=== PATIENT | male | born 1985 | race Caucasian/White ===

== ENCOUNTER 2016-12-25 12:50 | Emergency (ER) ==
[2016-12-25 13:04] VITALS: BP 148/89; TEMP 98.6; BMI 43.0
[2016-12-25] MEDS ORDERED: ZOFRAN 4 MG/2 ML IM STA (13:34)
[2016-12-25] MEDS ORDERED: MORPHINE 4 MG/ML SYRINGE IM STA (13:34)
--- NOTE | 2016-12-25 13:37 | ED.PDOC ---
General ED Provider: Dr. NANCY FLORES Chief Complaint: Neck Pain Non-Injury Stated Complaint: NECK PAIN Time Seen by Physician: 13:00 Information Source: Patient Primary Care Provider: [facility] Documentation Reviewed and Agree: Yes Musculoskeletal Complaint Exam - Neck Pain Complaint/Exam Mechanism of Injury: Reports: No known trauma Onset/Duration: 2 DAYS Symptoms Are: Still present Timing: Constant Episodes Lasting: Hours Initial Severity: Moderate Current Severity: Moderate Character: Reports: Aching, Throbbing, Spasmodic, Stiffness Aggravating: Reports: Position, Movement Alleviating: Reports: Position Associated Signs and Symptoms: Denies: Swelling, Redness, Bruising, Fever, Nuchal rigidity, Weakness, Headache, Paresthesia Related History: Reports: Similar episode Meningitis Risk Factors: Reports: None Cervical Spine Injury Risk Factors: Reports: Post-Midline CS tender Related Surgical History: Reports: None Carotid Bruit Present: No Pain on Passive Flexion: No Positive Kernig's Sign: No Tenderness: Present: Paraspinal Focal Weakness: Present: None Focal Sensory Loss: Reports: None Nexus Low Risk Criteria: No evidence of intoxicat., No Altered LOC, No focal neuro deficit, No distracting injuries Differential Diagnoses: Arthritis, Sprain, Strain Review of Systems - Review Of Systems Constitutional: Reports: No symptoms Eyes: Reports: No symptoms Ears, Nose, Mouth, Throat: Reports: No symptoms Respiratory: Reports: No symptoms Cardiac: Reports: No symptoms GI: Reports: No symptoms : Reports: No symptoms Musculoskeletal: Reports: Neck pain Skin: Reports: No symptoms Neurological: Reports: No symptoms Endocrine: Reports: No symptoms Hematologic/Lymphatic: Reports: No symptoms All Other Systems: Reviewed and Negative Past Medical History - Past Medical History Previously Healthy: Yes Endocrine: Reports: None Cardiovascular: Reports: Hypertension Respiratory: Reports: None Hematological: Reports: None Gastrointestinal: Reports: None Genitourinary: Reports: None Neuro/Psych: Reports: Depression, Bipolar Disorder Musculoskeletal: Reports: None Cancer: Reports: None - Surgical History General Surgical History: Reports: Orthopedic - Family History Family History: Reports: Unknown - Social History Smoking Status: Former smoker Hx Substance Use: No Alcohol Screening: Occasionally Physical Exam - Physical Exam Appearance: Well-appearing, No pain distress, Well-nourished Eyes: KASIE, EOMI, Conjunctiva clear ENT: Ears normal, Nose normal, Oropharynx normal Respiratory: Airway patent, Breath sounds clear, Breath sounds equal, Respirations nonlabored Cardiovascular: RRR, Pulses normal, No rub, No murmur GI/: Soft, Nontender, No masses, Bowel sounds normal, No Organomegaly Musculoskeletal: Normal strength, ROM intact, No edema, No calf tenderness Skin: Warm, Dry, Normal color Neurological: Sensation intact, Motor intact, Reflexes intact, Cranial nerves intact, Alert, Oriented Psychiatric: Affect appropriate, Mood appropriate Interpretation - Radiology Interpretation Radiology Interpretation By: Radiologist Critical Care Note - Critical Care Note Total Time (mins): 0 Course - Course Orders, Labs, Meds: Orders Category Date Time Status Morphine Sulfate [Morphine 4 mg/ml Syringe] MEDS 12/25/16 13:34 Stat 4 mg IM ONCE STA Ondansetron HCl/Pf [Zofran 4 mg/2 ml] MEDS 12/25/16 13:34 Stat 4 mg IM ONCE STA CT CERVICAL SPINE W/O CONTRAST Stat RADS 12/25/16 13:08 Taken Medications Discontinued Medications Generic Name Dose Route Start Last Admin Trade Name Dejuan PRN Reason Stop Dose Admin Morphine Sulfate 4 mg 12/25/16 13:34 Morphine 4 Mg/Ml Syringe IM 12/25/16 13:35 ONCE STA Ondansetron HCl 4 mg 12/25/16 13:34 Zofran 4 Mg/2 Ml IM 12/25/16 13:35 ONCE STA Vital Signs: Temp Pulse Resp BP Pulse Ox 12/25/16 12:51 98.6 F 71 20 148/89 H 95 Departure - Departure Time of Disposition: 14:30 Disposition: HOME SELF-CARE Discharge Problem: Neck pain Instructions: Cervical Sprain (ED), Acute Neck Pain (ED), Neck Pain (ED) Condition: Good Pt referred to PMD for follow-up: No Additional Instructions: Please call your Family Physician as soon as possible to schedule a follow-up appointment. Prescriptions: Oxycodone-Acetaminophen 10-325 [Percocet 10-325] 1 tab PO Q8H #20 tablet Allergies/Adverse Reactions: Allergies No Known Allergies Allergy (Verified 12/25/16 13:01) Home Medications: Ambulatory Orders Oxycodone-Acetaminophen 10-325 [Percocet 10-325] 1 tab PO Q8H #20 tablet Disposition Discussed With: Patient
--- NOTE | 2016-12-25 13:46 | CT ---
EXAM: CT of the cervical spine without contrast History: Neck pain. Technique: Multiplanar CT images through the cervical spine were obtained without the administratio n of IV contrast Findings: The visualized lung apices are free of consolidation. The visualized airway remains ewing nt. Reversal of the normal cervical lordosis. No acute fracture or subluxation. Disc space heights are preserved. No prevertebral soft tissue swelling. Predental space is not widened. Bony spinal can al is not compromised. No significant bony neural foraminal narrowing. Impression: No acute osseous abnormality of the cervical spine and no significant degenerative myles ges. Reversal of the normal cervical lordosis.
== END 2016-12-25 14:48 | disposition home or self-care (01) ==
LOC: ED 12:50
DX: M54.2 Cervicalgia (principal)
CPT/HCPCS: 96372; 99282

== ENCOUNTER 2017-03-21 16:39 | Emergency (ER) | payer OTHER ==
[2017-03-21 16:51] VITALS: BP 149/95; TEMP 96.6; BMI 38.3
[2017-03-21] MEDS ORDERED: ZOFRAN 4 MG/2 ML IM STA (16:51)
[2017-03-21] MEDS ORDERED: VALIUM SYRINGE IM STA (16:51)
[2017-03-21] MEDS ORDERED: MORPHINE 4 MG/ML SYRINGE IM STA (16:51)
[2017-03-21] MEDS ORDERED: TORADOL IM STA (16:52)
--- NOTE | 2017-03-21 17:41 | ED.PDOC ---
General ED Provider: Dr. NANCY FLORES Chief Complaint: Neck Injury Stated Complaint: neck pain Time Seen by Physician: 16:43 Mode of Arrival: Walk-In Information Source: Patient Exam Limitations: No limitations [facility] Documentation Reviewed and Agree: Yes Musculoskeletal Complaint Exam - Neck Pain Complaint/Exam Mechanism of Injury: Reports: No known trauma Onset/Duration: 1 hr ago Symptoms Are: Still present Timing: Constant Initial Severity: Moderate Current Severity: Moderate Location: Reports: Discrete Character: Reports: Aching Aggravating: Reports: None Alleviating: Reports: None Associated Signs and Symptoms: Denies: Swelling, Redness, Bruising, Fever, Nuchal rigidity, Weakness, Headache, Paresthesia Related History: Reports: Similar episode Meningitis Risk Factors: Reports: None Cervical Spine Injury Risk Factors: Reports: None Related Surgical History: Reports: None Carotid Bruit Present: No Pain on Passive Flexion: No Positive Kernig's Sign: No Tenderness: Present: Midline Focal Weakness: Present: None Focal Sensory Loss: Reports: None Nexus Low Risk Criteria: No evidence of intoxicat., No Altered LOC, No focal neuro deficit, No distracting injuries Differential Diagnoses: Cervical Fracture, Sprain, Strain Review of Systems - Review Of Systems Constitutional: Reports: No symptoms Eyes: Reports: No symptoms Ears, Nose, Mouth, Throat: Reports: No symptoms Respiratory: Reports: No symptoms Cardiac: Reports: No symptoms GI: Reports: No symptoms : Reports: No symptoms Musculoskeletal: Reports: Neck pain Skin: Reports: No symptoms Neurological: Reports: No symptoms Endocrine: Reports: No symptoms Hematologic/Lymphatic: Reports: No symptoms All Other Systems: Reviewed and Negative Past Medical History - Past Medical History Previously Healthy: Yes Endocrine: Reports: None Cardiovascular: Reports: Hypertension Respiratory: Reports: None Hematological: Reports: None Gastrointestinal: Reports: None Genitourinary: Reports: None Neuro/Psych: Reports: Depression, Bipolar Disorder Musculoskeletal: Reports: None Cancer: Reports: None - Surgical History General Surgical History: Reports: Orthopedic - Family History Family History: Reports: Unknown - Social History Smoking Status: Former smoker Hx Substance Use: No Alcohol Screening: Occasionally - Immunizations Tetanus Shot up to Date: Yes Physical Exam - Physical Exam Appearance: Well-appearing, No pain distress, Well-nourished Eyes: KASIE, EOMI, Conjunctiva clear ENT: Ears normal, Nose normal, Oropharynx normal Respiratory: Airway patent, Breath sounds clear, Breath sounds equal, Respirations nonlabored Cardiovascular: RRR, Pulses normal, No rub, No murmur GI/: Soft, Nontender, No masses, Bowel sounds normal, No Organomegaly Musculoskeletal: Normal strength, ROM intact, No edema, No calf tenderness Skin: Warm, Dry, Normal color Neurological: Sensation intact, Motor intact, Reflexes intact, Cranial nerves intact, Alert, Oriented Psychiatric: Affect appropriate, Mood appropriate Critical Care Note - Critical Care Note Total Time (mins): 0 Course - Course Orders, Labs, Meds: Orders Category Date Time Status Diazepam Syringe [Valium Syringe] MEDS 03/21/17 16:51 Discontinued 5 mg IM ONCE STA Ketorolac Tromethamine [Toradol] MEDS 03/21/17 16:52 Discontinued 30 mg IM ONCE STA Morphine Sulfate [Morphine 4 mg/ml Syringe] MEDS 03/21/17 16:51 Discontinued 4 mg IM ONCE STA Ondansetron HCl/Pf [Zofran 4 mg/2 ml] MEDS 03/21/17 16:51 Discontinued 4 mg IM ONCE STA Medications Discontinued Medications Generic Name Dose Route Start Last Admin Trade Name Freq PRN Reason Stop Dose Admin Diazepam 5 mg 03/21/17 16:51 03/21/17 17:06 Valium Syringe IM 03/21/17 16:52 5 mg ONCE STA Administration Ketorolac Tromethamine 30 mg 03/21/17 16:52 03/21/17 17:05 Toradol IM 03/21/17 16:53 30 mg ONCE STA Administration Morphine Sulfate 4 mg 03/21/17 16:51 03/21/17 17:03 Morphine 4 Mg/Ml Syringe IM 03/21/17 16:52 4 mg ONCE STA Administration Ondansetron HCl 4 mg 03/21/17 16:51 03/21/17 17:02 Zofran 4 Mg/2 Ml IM 03/21/17 16:52 4 mg ONCE STA Administration Vital Signs: Temp Pulse Resp BP Pulse Ox 03/21/17 16:39 96.6 F L 81 20 149/95 H 95 Departure - Departure Time of Disposition: 17:40 Disposition: HOME SELF-CARE Discharge Problem: Neck pain, acute Instructions: Acute Neck Pain (ED), Neck Pain (ED), Cervical Sprain (ED), Soft Cervical Collar (ED), Cervical Strain (ED) Condition: Good Pt referred to PMD for follow-up: No Additional Instructions: Please call your Family Physician as soon as possible to schedule a follow-up appointment. Allergies/Adverse Reactions: Allergies No Known Allergies Allergy (Verified 03/21/17 16:48) Home Medications: Ambulatory Orders 1 [No Reported Medications] 03/21/17
== END 2017-03-21 17:51 | disposition home or self-care (01) ==
LOC: ED 16:39
DX: S19.9XXA Unspecified injury of neck, initial encounter (principal); M54.2 Cervicalgia; I10 Essential (primary) hypertension
CPT/HCPCS: 96372; 99283

== ENCOUNTER 2017-03-25 07:43 | Emergency (ER) ==
[2017-03-25 07:51] VITALS: BP 151/88; TEMP 96; BMI 38.3
[2017-03-25] MEDS: TORADOL IM STA (08:17)
[2017-03-25] MEDS: MORPHINE 4 MG/ML SYRINGE IVP STA (08:18)
[2017-03-25] MEDS: ZOFRAN 4 MG/2 ML IVP STA (08:18)
--- NOTE | 2017-03-25 09:12 | CT ---
EXAM: CT cervical spine without contrast. HISTORY: Neck pain and right arm numbness with injury 4 days prior COMPARISON: CT cervical spine 12/25/2016 TECHNIQUE: Serial axial images of the cervical spine were obtained from the skull base through the lung apices without contrast. These were viewed in multiple planes. FINDINGS: Vertebral bodies demonstrate no acute compression fracture or subluxation. There is stra ightening the cervical spine. Disc space and vertebral body height are normal. The odontoid proces s is unremarkable. The facets and posterior processes are unremarkable. C1 ring is intact. There are few scattered small disc bulges with no acute central or neural foraminal narrowing. The soft t issues are are unremarkable. IMPRESSION: 1. No acute abnormality, compression fracture or or subluxation. 2. Unchanged mild straightening of the cervical spine.
--- NOTE | 2017-03-25 09:44 | ED.PDOC ---
General ED Provider: Dr. NANCY FLORES Chief Complaint: Neck Pain Non-Injury Stated Complaint: neck pain Time Seen by Physician: 07:43 Mode of Arrival: Walk-In Information Source: Patient Exam Limitations: No limitations [facility] T[facility] Documentation Reviewed and Agree: Yes Musculoskeletal Complaint Exam - Neck Pain Complaint/Exam Mechanism of Injury: Reports: Trauma, No known trauma (pulled ) Symptoms Are: Still present Timing: Intermittent Episodes Lasting: Weeks Initial Severity: Moderate Current Severity: Moderate Location: Reports: Discrete Character: Reports: Dull, Aching Aggravating: Reports: None Alleviating: Reports: None Associated Signs and Symptoms: Denies: Swelling, Redness, Bruising, Fever, Nuchal rigidity, Weakness, Headache, Paresthesia Related History: Reports: Similar episode Meningitis Risk Factors: Reports: None Cervical Spine Injury Risk Factors: Reports: None Related Surgical History: Reports: None Carotid Bruit Present: No Pain on Passive Flexion: No Positive Kernig's Sign: No Focal Weakness: Present: None Focal Sensory Loss: Reports: None Nexus Low Risk Criteria: No post-midline CS tender, No evidence of intoxicat., No Altered LOC, No focal neuro deficit, No distracting injuries Differential Diagnoses: Sprain, Strain Review of Systems - Review Of Systems Constitutional: Reports: No symptoms Eyes: Reports: No symptoms Ears, Nose, Mouth, Throat: Reports: No symptoms Respiratory: Reports: No symptoms Cardiac: Reports: No symptoms GI: Reports: No symptoms : Reports: No symptoms Musculoskeletal: Reports: Back pain Skin: Reports: No symptoms Neurological: Reports: No symptoms Endocrine: Reports: No symptoms Hematologic/Lymphatic: Reports: No symptoms All Other Systems: Reviewed and Negative Past Medical History - Past Medical History Previously Healthy: Yes Endocrine: Reports: None Cardiovascular: Reports: Hypertension Respiratory: Reports: None Hematological: Reports: None Gastrointestinal: Reports: None Genitourinary: Reports: None Neuro/Psych: Reports: Depression, Bipolar Disorder Musculoskeletal: Reports: None Cancer: Reports: None - Surgical History General Surgical History: Reports: Orthopedic - Family History Family History: Reports: Unknown - Social History Smoking Status: Chews tobacco Hx Substance Use: No Alcohol Screening: Occasionally - Immunizations Tetanus Shot up to Date: Yes Physical Exam - Physical Exam Appearance: Well-appearing, No pain distress, Well-nourished Eyes: KASIE, EOMI, Conjunctiva clear ENT: Ears normal, Nose normal, Oropharynx normal Respiratory: Airway patent, Breath sounds clear, Breath sounds equal, Respirations nonlabored Cardiovascular: RRR, Pulses normal, No rub, No murmur GI/: Soft, Nontender, No masses, Bowel sounds normal, No Organomegaly Musculoskeletal: Normal strength, ROM intact, No edema, No calf tenderness Skin: Warm, Dry, Normal color Neurological: Sensation intact, Motor intact, Reflexes intact, Cranial nerves intact, Alert, Oriented Psychiatric: Affect appropriate, Mood appropriate Critical Care Note - Critical Care Note Total Time (mins): 0 Course - Course Orders, Labs, Meds: Orders Category Date Time Status Ketorolac Tromethamine [Toradol] MEDS 03/25/17 08:05 Discontinued 30 mg IM ONCE STA Morphine Sulfate [Morphine 4 mg/ml Syringe] MEDS 03/25/17 08:05 Discontinued 2 mg IVP ONCE STA Ondansetron HCl/Pf [Zofran 4 mg/2 ml] MEDS 03/25/17 08:05 Discontinued 4 mg IVP ONCE STA CT CERVICAL SPINE W/O CONTRAST Stat RADS 03/25/17 08:10 Completed Medications Discontinued Medications Generic Name Dose Route Start Last Admin Trade Name Freq PRN Reason Stop Dose Admin Ketorolac Tromethamine 30 mg 03/25/17 08:05 03/25/17 08:17 Toradol IM 03/25/17 08:06 30 mg ONCE STA Administration Morphine Sulfate 2 mg 03/25/17 08:05 03/25/17 08:18 Morphine 4 Mg/Ml Syringe IVP 03/25/17 08:06 4 mg ONCE STA Administration Ondansetron HCl 4 mg 03/25/17 08:05 03/25/17 08:18 Zofran 4 Mg/2 Ml IVP 03/25/17 08:06 4 mg ONCE STA Administration Vital Signs: Temp Pulse Resp BP Pulse Ox 03/25/17 07:43 96.0 F L 66 16 151/88 H 96 Departure - Departure Time of Disposition: 09:48 Disposition: HOME SELF-CARE Discharge Problem: Neck pain, Neck muscle strain Instructions: Neck Pain (ED) Condition: Good Pt referred to PMD for follow-up: No Allergies/Adverse Reactions: Allergies No Known Allergies Allergy (Verified 03/21/17 16:48) Home Medications: Ambulatory Orders Oxycodone HCl/Acetaminophen [Percocet 10-325 mg Tablet] 10 mg PO TID PRN
== END 2017-03-25 10:11 | disposition home or self-care (01) ==
LOC: ED 07:43
DX: S16.1XXA Strain of muscle, fascia and tendon at neck level, initial encounter (principal); F17.220 Nicotine dependence, chewing tobacco, uncomplicated; X50.1XXA Overexertion from prolonged static or awkward postures, initial encounter
CPT/HCPCS: 96372; 96374; 96375; 99282

== ENCOUNTER 2017-03-25 12:15 | Outpatient (CLI) ==
[2017-03-25 07:51] VITALS: BMI 38.3
[2017-03-25 13:22] LABS: ALBUMIN/GLOBULIN RATIO 1.18; ANION GAP 12.1; BILIRUBIN,TOTAL 0.34 mg/dL (0.00-1.20); BUN/CREATININE RATIO 13.18; CALCIUM 9.5 mg/dL (8.2-10.2); CREATININE 0.91 mg/dL (0.60-1.10); POTASSIUM 4.1 mmol/L (3.5-5.1); TOTAL PROTEIN 7.4 g/dL (6.4-8.2)
== END 2017-03-25 12:16 | disposition home or self-care (01) ==
LOC: LAB 12:15
PROVIDERS: ATTEND Physician Assistant
DX: M54.2 Cervicalgia (principal)
CPT/HCPCS: 36415; 80053

== ENCOUNTER 2017-03-26 07:51 | Outpatient (CLI) ==
[2017-03-25 07:51] VITALS: BMI 38.3
--- NOTE | 2017-03-26 12:07 | MRI ---
EXAM: Cervical spine MRI with and without contrast. HISTORY: Neck pain. COMPARISON: Cervical spine CT scan 03/25/2017. TECHNIQUE: Multiplanar, multisequence MR images were acquired of the cervical spine before and afte r administration of intravenous contrast. FINDINGS: The craniocervical junction is unremarkable and the cervical cord has normal signal inten sity. After administration of contrast, there is no abnormal leptomeningeal enhancement. There is straightening of the usual cervical lordosis. The cervical vertebra are normal in height and intrins ic bone marrow signal. Canal diameter is developmentally narrow. There is mild adenoidal and palat ine tonsillar hypertrophy which is considered normal for the patient's age. There are no paraverteb ral masses. Visualized lung apices are clear. C2-3: The intervertebral disc is normal. C3-4: The intervertebral disc is normal. There is minor bilateral uncovertebral hypertrophy and mil d left neural foraminal stenosis. C4-5: There is a minor left posterior disc bulge with minor endplate osteophytes that merges with m ild left uncovertebral hypertrophy. There is mild left neural foraminal stenosis. C5-6: There is mild disc bulge with small posterior endplate osteophytes and minor right and mild l eft uncovertebral hypertrophy. There is no central canal stenosis or foraminal stenosis. C6-7: There is a mild disc bulge with a small central disc protrusion and minor endplate osteophyte s that effaces the ventral thecal sac. There is no central canal stenosis or foraminal stenosis. A P diameter of the thecal sac is 10.3 mm. C7-T1: The intervertebral disc is normal. IMPRESSION: 1. Minor cervical degenerative spondylosis. 2. Mild discogenic disease C6-7 with small central disc protrusion.
== END 2017-03-26 07:52 | disposition home or self-care (01) ==
LOC: RAD 07:51
PROVIDERS: ATTEND Physician Assistant
DX: M54.2 Cervicalgia (principal)

== ENCOUNTER 2017-05-04 12:43 | Outpatient (CLI) ==
--- NOTE | 2017-05-04 14:09 | DI ---
EXAM: Seven views of the cervical spine. History: Neck pain. Comparison: MRI of the cervical spine 03/26/2017, CT cervical spine 03/25/2017 Findings: No acute fracture or subluxation. Stable mild chronic loss of height at the superior end plate of C4. No prevertebral soft tissue swelling. Disc space heights are preserved. Predental sp marylin is not widened. The oblique images demonstrate no significant bony neural foraminal narrowing. No instability identified with flexion or extension. Impression: No acute or significant findings.
== END 2017-05-04 12:44 | disposition home or self-care (01) ==
LOC: RAD 12:43
PROVIDERS: ATTEND Orthopaedic Surgery
DX: M54.2 Cervicalgia (principal)

== ENCOUNTER 2017-06-22 23:34 | Emergency (ER) | payer OTHER ==
[2017-06-22] MEDS ORDERED: LIDOCAINE 1%-EPI 1:100,000 20 ML MDV INJ STA (23:45)
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
[2017-06-22] MEDS ORDERED: LIDOCAINE 1 % AMP 5 ML (SUTURES) SUBCUT STA (23:52)
[2017-06-22 23:57] VITALS: BP 166/101; TEMP 98.4; BMI 39.1
[2017-06-23 00:08] LABS: BASOPHILS # (AUTO) 0.1 K/uL (0-0.2); BASOPHILS % (AUTO) 0.5 % (0.0-3.0); EOSINOPHILS # (AUTO) 0.3 K/ul (0.0-0.7); EOSINOPHILS % (AUTO) 2.9 % (0.0-7.0); HEMATOCRIT 43.8 % (42.0-52.0); HEMOGLOBIN 15.6 g/dl (14.0-18.0); IMMATURE GRANULOCYTE % (AUTO) 0.3 % (0.0-5.0); LYMPHOCYTES # (AUTO) 3.1 K/uL (0.60-3.4); LYMPHOCYTES % (AUTO) 29.4 (10.0-50.0); MEAN CORPUSCULAR HEMOGLOBIN 29.2 pg (27.0-31.0); MEAN CORPUSCULAR HGB CONC 35.6 (31.8-35.4); MEAN CORPUSCULAR VOLUME 81.9 fl (80.0-94.0); MONOCYTES # (AUTO) 0.8 K/uL (0.4-2.0); MONOCYTES % (AUTO) 7.1 (0-10); NEUTROPHILS # (AUTO) 6.3 K/ul (2.0-6.9); NEUTROPHILS % (AUTO) 59.8; PLATELET COUNT 241 10^3/uL (140-440); RED BLOOD COUNT 5.35 10^6/ul (4.70-6.10); WHITE BLOOD COUNT 10.51 K/ul (4.2-10.2)
--- NOTE | 2017-06-23 00:11 | DI ---
EXAM: Right wrist, three views, 06/22/2017 HISTORY: Injury COMPARISON: None. FINDINGS / IMPRESSION: The visualized osseous structures appear intact. Anatomic alignment appears within normal limits. There is no evidence of fracture or dislocation. No acute osseous abnormality.
--- NOTE | 2017-06-23 00:15 | CT ---
EXAM: CT head without contrast 06/22/2017. Sagittal and coronal reformatted images obtained HISTORY: Injury COMPARISON: 06/26/2011 FINDINGS: There is no evidence of intracranial hemorrhage. The midline is maintained. There is no hydrocephalus. No cerebellar tonsillar ectopia. Evaluation of the calvarium shows no fracture. The mastoid air cells are normally pneumatized. IMPRESSION: No acute intracranial abnormality.
--- NOTE | 2017-06-23 00:19 | CT ---
EXAM: CT maxillofacial without intravenous contrast 06/22/2017. Sagittal and coronal reformatted i mages obtained HISTORY: Injury COMPARISON: 06/22/2017 FINDINGS: The facial bones appear intact without evidence of fracture. Normal anatomic alignment i s maintained. Normal aeration is maintained within the paranasal sinuses. No gross soft tissue abnormality. IMPRESSION: No acute osseous abnormality of the facial bones.
[2017-06-23 00:27] LABS: ACETAMINOPHEN < 3 ug/ml (10-30); ALANINE AMINOTRANSFERASE 21 U/L (12-78); ALBUMIN 4.5 g/dL (3.4-5.0); ALBUMIN/GLOBULIN RATIO 1.25; ALKALINE PHOSPHATASE 63 U/L (50-136); ANION GAP 13.6; ASPARTATE AMINO TRANSFERASE 29 U/L (15-37); BILIRUBIN,TOTAL 0.61 mg/dL (0.00-1.20); BLOOD UREA NITROGEN 16 mg/dL (7-18); BUN/CREATININE RATIO 14.41; CALCIUM 9.7 mg/dL (8.2-10.2); CARBON DIOXIDE 25 mmol/L (21-32); CHLORIDE 103 mmol/L (98-107); CREATININE 1.11 mg/dL (0.60-1.10); GLUCOSE 92 mg/dL (70-100); POTASSIUM 3.6 mmol/L (3.5-5.1); SALICYLATE < 5.0 mg/dL (2.8-20.0); SODIUM 138 mmol/L (136-145); TOTAL PROTEIN 8.1 g/dL (6.4-8.2)
[2017-06-23] MEDS ORDERED: DEMEROL 25 MG/ML SYRINGE IM STA (00:45)
[2017-06-23] MEDS ORDERED: ZOFRAN 4 MG/2 ML IM STA (00:46)
[2017-06-23 00:58] LABS: COCAIN SCREEN,URINE NEGATIVE (NEGATIVE)
--- NOTE | 2017-06-23 07:08 | DI ---
Exam: Four x-rays of the right knee. Comparison: 03/17/2010. Reason for exam: Injury with pain. FINDINGS: No acute fracture or dislocation. The joint space is relatively well maintained. There is moderate degenerative disease with tricompartmental arthrosis and spurring of the tibial spines. Impression: No acute fracture or dislocation in the right knee with mild to moderate arthritic change.
== END 2017-06-23 01:08 | disposition home or self-care (01) ==
LOC: ED 23:34
DX: S01.511A Laceration without foreign body of lip, initial encounter (principal); S09.93XA Unspecified injury of face, initial encounter; R51 Headache; I10 Essential (primary) hypertension; Y35.811A Legal intervention involving manhandling, law enforcement official injured, initial encounter; Y99.0 Civilian activity done for income or pay; F17.220 Nicotine dependence, chewing tobacco, uncomplicated
CPT/HCPCS: 36415; 80053; 80306; 80307; 85025; 96372; 99283

== ENCOUNTER 2018-01-04 16:26 | Outpatient (CLI) | END 2018-01-04 16:27 | disposition home or self-care (01) | LOC: LAB 16:26 | PROVIDERS: ATTEND Emergency Medicine | DX: S81.001A Unspecified open wound, right knee, initial encounter (principal) | CPT/HCPCS: 36415; 80053; 85025 ==

== ENCOUNTER 2018-01-25 12:56 | Outpatient (CLI) | payer OTHER ==
--- NOTE | 2018-01-25 16:36 | MRI ---
EXAM: MRI left knee without contrast COMPARISON: None available. HISTORY: Left knee pain. No history of left knee surgery. Possible left knee pain related to compe nsating for an injury of the contralateral/right knee. TECHNIQUE: Multiplanar noncontrast MR images of the left knee were acquired using a 1.2 Paty magnet . FINDINGS: No recent radiographs of the left knee are available for comparison and radiographic corre lation is recommended. Intrasubstance degeneration of the medial meniscus without a surfacing tear. There is intrasubstance degeneration of the lateral meniscus with a tear involving the free edge and central portion of the inferior articular surface from the body through the anterior and posterior ho rns with tear extending peripherally. Intrameniscal/parameniscal cyst measuring up to 5 mm in size o f the anterior horn and root with a smaller component extending through the body and posterior horn. Inversion recovery hyperintense signal involving the anterior cruciate ligament with some mild thinni ng and sagging of the ligament fibers are intact fibers are clearly identified. This may represent s equela of mucoid degeneration versus a ligament sprain. The posterior cruciate ligament and intact. Medial collateral ligament, lateral collateral ligament complex and posterolateral corner ligaments are intact. Mild distal quadriceps and minimal patellar tendinosis. 5 mm lateral subluxation of the patella. Subcutaneous edema anteriorly. There is chondromalacia patella. Mild thinning of the cartilage in the medial and lateral compartmen ts. No evidence of an acute fracture. Small joint effusion. No popliteal cyst or osteochondral bod y. IMPRESSION: 1. Lateral meniscal tear with intrameniscal/parameniscal cyst as described. 2. Mucoid degeneration versus sequela of a sprain of the anterior cruciate ligament though intact fi bers are clearly identified. 3. Mild patellar/quadriceps tendinosis with mild lateral subluxation of the patella. 4. Mild tricompartmental osteoarthrosis. Small joint effusion, nonspecific.
--- NOTE | 2018-01-25 22:15 | MRI ---
EXAM: Lumbar spine MRI without contrast. HISTORY: Lumbago with right sciatica. COMPARISON: Lumbar spine radiographs 04/26/2015. TECHNIQUE: Multiplanar, multisequence MR images were acquired of the lumbar spine without contrast. FINDINGS: Conus medullaris ends at L1-2 and is normal signal intensity. 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 Five non-rib bearing lumbar vertebra are present. The lumbar vertebra are normal in height and intrinsic bone marrow signal. There is mild disc space narrowing at L5-S1. Minor lumbar ventral spondylosis is present. The partially visualized liver, spleen and kidneys are unremarkable. There are no paravertebral mass es. L1-2: The intervertebral disc is normal. L2-3: There is a minor disc bulge that minimally effaces the ventral thecal sac and narrows the ante rior inferior neural foramina. Minor right facet arthropathy is present with a tiny right facet effu flory and a small synovial cyst along the posterolateral right facet joint. There is no central canal stenosis. L3-4: There is a minor disc bulge that is considered physiologic which minimally narrows the inferio r neural foramina bilaterally. In this patient with a developmentally narrow canal, there is minor le ft greater than right neural foraminal stenosis. L4-5: There is a minor posterior disc bulge that minimally effaces the ventral thecal sac and anteri or inferior neural foramina bilaterally. Minor right and mild left facet and ligamentum flavum hyper trophy is present and there is minor bilateral foraminal stenosis. There is no central canal stenosi s. L5-S1: There is a minor right posterior disc bulge with marginal osteophytes and a moderate broad-ba sed right posterolateral disc protrusion that extends into the right neural foramen and encroaches on the traversing right L5 nerve. This posteriorly displaces the right S1 nerve in the lateral recess. Minor bilateral facet arthropathy is present. There is right lateral recess stenosis and mild to m oderate right neural foraminal stenosis. IMPRESSION: 1. Moderate right posterolateral/lateral disc protrusion L5-S1 that posteriorly displaces the right S1 nerve in the lateral recess and encroaches on the traversing right L5 nerve in the neural foramen. 2. Minor lumbar degenerative spondylosis and mild lower facet arthropathy without central canal sten osis. 3. Mild to moderate right L5-S1 neural foraminal stenosis.
== END 2018-01-25 12:57 | disposition home or self-care (01) ==
LOC: RAD 12:56
PROVIDERS: ATTEND Emergency Medicine
DX: M25.562 Pain in left knee (principal); M54.41 Lumbago with sciatica, right side; G89.29 Other chronic pain

== ENCOUNTER 2018-07-19 10:00 | Outpatient (RCR) ==
--- NOTE | 2018-07-13 12:00 | RS.OPPTEV2 ---
Date of Note: 07/12/18 Visit #: 1 Date of Evaluation: 07/12/18 Payer Source: Medicaid Surgery Performed?: Yes (partial menisectomy) Date of Procedure: 07/06/18 Treatment Diagnosis: Lateral meniscus tear History of Condition/Mechanism of Injury:: pt states he has had a chronic hx of pain in his knee which increased after having back surgery Prior Level of Function.....Patient was independent with: ADL's, Self Care, Work /Vocation, Ambulation/Mobility, Community Integration/Access Functional Limitations: Lifting, Carrying, Standing, Squatting, Ambulation, Community Access/Integration Current Subjective/complaints:: pt states he has been using only one crutch because it was easier to get around. States he wants to get better and back to 100% so he can go to state [employer]. 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 Pain Assessment - Pain Description Pain Location: L knee Pain Description: Aching Current Pain Intensity: 4 Functional Outcome Measure LE Functional Scale: 16 - G Codes & Severity Modifier G Codes & Modifier: na Source of G Code score: n/a Observation - Observation Posture: Forward Head, Rounded Shoulders Handedness: Right Girth Measurement Lower: LLE knee 44cm, 10cm above knee 52.3 cm. RLE knee 41.8cm, 10cm above knee 51.7 cm Gait - Gait Pattern General Gait Pattern Observation: Antalgic Gait, Short Stance Time (L), Decrease Stride Lngth (L) Gait Comments: pt amb with antalgic gait pattern PWB LLE. pt is to be PWB until 07/20/18 General Range of Motion: BUE WFL's. RLE WFL's Knee ROM: Right WFL's Knee Muscle Strength: Right WFL's - Left Knee ROM Left Knee Extension: -7 Left Knee Flexion: 77 Knee ROM Limitations: Soft Tissue Tightness, Muscle Weakness, Pain - Left Knee Strength Left Knee Extension: 3- Fair- Left Knee Flexion: 3- Fair- Palpation Palpation Findings: Tenderness Comments:: tenderness noted in medial L knee. Sensation - Sensation Right Upper Extremity: Intact/Normal Left Upper Extremity: Intact/Normal Right Lower Extremity: Impaired (n/t R lower leg after having back issues) Left Lower Extremity: Intact/Normal Balance - Sitting Balance Static Sitting Balance: Normal Dynamic Sitting Balance: Normal - Standing Balance Static Standing Balance: Good Dynamic Standing Balance: Good - Heat/Cryotherapy Treatment: Cryotherapy Comments:: L knee Interventions - Exercise/Activities/Manual Therapy Exercises/Activities: pt performed QS, Hip abd/add, SAQ, hamstring stretch Manual Therapy: n/a - Charges Timed Code Treatment Minutes: 49 Total Treatment Time: 58 Procedures billed for this date of service:: eval low EVALUATION COMPLEXITY LEVEL EVALUATION COMPLEXITY LEVEL: HISTORY: Low (htn, knee pain), EXAM OF BODY SYSTEMS : Medium (pain, ROM, balance, gait), CLINICAL PRESENTATION: Low, CLINICAL DECISION MAKING: Low Assessment Assessment: pt presents with decreased strength, ROM L knee, pt also with pain and edema LLE s/p partial menisectomy Patient Education: Home Exercise Program, Education of Plan of Care Rehab Potential: Good Short Term Goals Goal #1: Improve L knee ROM flex 90 ext -5 Goal to be met by: 07/26/18 Goal #2: Decrease edema LLE equal to RLE Goal to be met by: 07/26/18 Goal #3: pt amb with AAD in dept with no LOB with improved sequencing Goal to be met by: 07/26/18 Goal #4: pt independent with initial HEP Goal to be met by: 07/26/18 Inside Sales Person Goals Goal #1: Improve L knee ROM flex 100 ext 0 Goal to be met by: 08/12/18 Goal #2: Decrease pain < 4/10 L knee Goal to be met by: 08/12/18 Goal #3: pt amb community distances independently w decreased antalgic gait Goal to be met by: 08/12/18 Goal #4: Improve strength L LE quads 4+/5 Goal to be met by: 08/12/18 Plan - Treatment to be Provided Procedures: Therapeutic Exercises, Therapeutic Activity, Gait Training, Manual Therapy, Patient Education Modalities: Cryotherapy Other:: no electrical modalities due to pt states they are testing for CA. - Treatment Plan Frequency: 2 X week Duration: 4 weeks ORDER # VISITS AND/OR THROUGH DATE: 08/12/18 - Treatment Code (1) Knee pain Code(s): M25.569 - PAIN IN UNSPECIFIED KNEE Qualifiers: Chronicity: acute Laterality: left Qualified Code(s): M25.562 - Pain in left knee (2) Joint effusion of knee Qualifiers: Laterality: left Qualified Code(s): M25.462 - Effusion, left knee (3) Joint stiffness of knee Qualifiers: Laterality: left Qualified Code(s): M25.662 - Stiffness of left knee, not elsewhere classified
--- NOTE | 2018-07-15 14:49 | RS.CXNS ---
Date of scheduled appointment: 07/15/18 Type: No Show
--- NOTE | 2018-07-19 11:06 | RS.OPPTDN ---
Subjective Date of Note: 07/19/18 Visit #: 2 Date of Evaluation: 07/12/18 Payer Source: Medicaid Treatment Diagnosis: Lateral meniscus tear Current Subjective/complaints:: Patient reports doing the exercises frequently, feels the knee is getting better.He enters clinic without use of crutch today. *Precautions: n/a Pain Assessment - Pain Description Pain Location: L knee Pain Description: Dull, Aching Current Pain Intensity: minimal - Heat/Cryotherapy Treatment: Cryotherapy (15 mins. after exercises) Interventions - Exercise/Activities/Manual Therapy Exercises/Activities: 25 mins. total of multiple reps. of pt performed QS, Hip abd/add, SAQ, hamstring stretch,SLR's ,SLR's with external rotation of the hip for VMO ,LAQ's .Reviewed the safety precautions ,open chain vs, closed chain activities. Total minutes of Exercise: 25 Manual Therapy: n/a HOME EXERCISE PROGRAM: ankle pumps,QS,SAQ,SLR's,LAQ's.AVOID EXCESSIVE CLOSED CHAIN EXERCISES at this time.(13 days post-op ) - Charges Timed Code Treatment Minutes: 25 Total Treatment Time: 40 Procedures billed for this date of service:: ex 2 ,cp Assessment: Patient has good return demo of each exercise today.He has moderate edema,minimal warmth present in the L knee.He has moderate hamstring tightness present,can benefit from stretching the anterior /posterior aspect to improve the mechanics of the knee. Patient Education: Education of diagnosis, Body/Joint mechanics, Home Exercise Program, Home Safety, Activity Modification, Education of Plan of Care Patient demonstrates compliance with HEP?: Yes Short Term Goals Goal #1: Improve L knee ROM flex 90 ext -5 Goal to be met by: 07/26/18 Progress towards Goal:: Progressing Goal #2: Decrease edema LLE equal to RLE Goal to be met by: 07/26/18 Progress towards Goal:: Progressing Goal #3: pt amb with AAD in dept with no LOB with improved sequencing Goal to be met by: 07/26/18 Progress towards Goal:: Progressing Goal #4: pt independent with initial HEP Goal to be met by: 07/26/18 Progress towards Goal:: Progressing Child Adolescent Psychiatrist Goals Goal #1: Improve L knee ROM flex 100 ext 0 Goal to be met by: 08/12/18 Goal #2: Decrease pain < 4/10 L knee Goal to be met by: 08/12/18 Goal #3: pt amb community distances independently w decreased antalgic gait Goal to be met by: 08/12/18 Goal #4: Improve strength L LE quads 4+/5 Goal to be met by: 08/12/18 Plan PLAN OF CARE EXPIRES ON:: 08/12/18 ORDER # VISITS AND/OR THROUGH DATE: 08/12/18 PLAN: Continue PT to strengthening the L knee ,reduce pain /edema .
--- NOTE | 2018-07-21 13:20 | RS.CXNS ---
Date of scheduled appointment: 07/21/18 Type: No Show Reason for Cancel/NS: Unknown
== END 2018-07-24 23:59 ==
PROVIDERS: ATTEND Orthopaedic Surgery
DX: M25.562 Pain in left knee (principal); M25.462 Effusion, left knee; M25.662 Stiffness of left knee, not elsewhere classified; Z47.89 Encounter for other orthopedic aftercare; Z98.890 Other specified postprocedural states

== ENCOUNTER 2018-08-18 18:13 | Emergency (ER) ==
[2018-08-18 18:18] VITALS: BP 143/70; TEMP 98.7; BMI 38.1
[2018-08-18] MEDS ORDERED: PHENERGAN 25 MG/ML VIAL 25 MG in SODIUM CHLORIDE 50 ML IV STA (19:05)
[2018-08-18] MEDS ORDERED: DILAUDID 1 MG/ML SYRINGE IVP STA (19:06)
--- NOTE | 2018-08-18 19:07 | ED.PDOC ---
General ED Provider: Dr. DARRICK ARZOLA Chief Complaint: Abdominal Pain Stated Complaint: Severe Stomach and abdominal pain. Onset last evening and persisted throughout today with worsened. NO Ride to hospital so called ambulance. Time Seen by Physician: 18:45 Mode of Arrival: Walk-In Information Source: Patient Exam Limitations: No limitations Primary Care Provider: JUSTA ROMAN Nursing and Triage Documentation Reviewed and Agree: Yes Does patient meet sepsis criteria?: No System Inflammatory Response Syndrome: Not Applicable Sepsis Protocol: For patient's 13 years and over: Temp is 96.8 and below OR 101 and greater Pulse >90 BPM Resp >20/minute Acutely Altered Mental Status Are patient's symptoms suggestive of a new infection, such as: -Pneumonia -Skin, Soft Tissue -Endocarditis -UTI -Bone, Joint Infection -Implantable Device -Acute Abdominal Infection -Wound Infection -Meningitis -Blood Stream Catheter Infection -Unknown GI Complaint Exam - Abdominal Pain Complaint/Exam Onset: Sudden Duration: 24 hrs Symptoms Are: Worse Timing: Constant Initial Severity: Moderate Current Severity: Severe Location of Pain: RLQ Radiates To: Reports: Inguinal Character: Reports: Aching, Throbbing, Cramping Aggravating: Reports: Movement, Deep breaths, Position (Has not eaten today) Alleviating: Reports: None Associated Signs and Symptoms: Reports: Diaphoresis, Back pain AAA Risk Factors: Reports: None Cardiac Risk Factors: Reports: None Testicular Torsion Risk Factors: Reports: None Surgical Obstruction Risk Factors: Reports: None Related Surgical History: Reports: None Abdominal Findings: Present: Rebound tenderness, Peritoneal signs, McBurney's Point tender Genitalia Exam: Present: Normal findings Male Body Picture: 1 - RLQ location of pain Differential Diagnoses: Appendicitis Review of Systems - Review Of Systems Constitutional: Reports: No symptoms Eyes: Reports: No symptoms Ears, Nose, Mouth, Throat: Reports: No symptoms Respiratory: Reports: No symptoms Cardiac: Reports: No symptoms GI: Reports: No symptoms, Abdominal pain, Nausea, Vomiting : Reports: No symptoms Musculoskeletal: Reports: No symptoms Skin: Reports: No symptoms Neurological: Reports: No symptoms Endocrine: Reports: No symptoms Hematologic/Lymphatic: Reports: No symptoms All Other Systems: Reviewed and Negative Past Medical History - Past Medical History Previously Healthy: Yes Endocrine: Reports: None Cardiovascular: Reports: Hypertension Respiratory: Reports: None Hematological: Reports: None Gastrointestinal: Reports: None Genitourinary: Reports: None Neuro/Psych: Reports: Depression, Bipolar Disorder Musculoskeletal: Reports: None Cancer: Reports: None - Surgical History General Surgical History: Reports: Orthopedic - Family History Family History: Reports: Unknown - Social History Smoking Status: Chews tobacco Hx Substance Use: No Alcohol Screening: Occasionally - Immunizations Tetanus Shot up to Date: Yes Physical Exam - Physical Exam Appearance: Well-appearing, Ill-appearing, Well-nourished Ill-appearing: Moderate Pain Distress: Severe Eyes: KASIE, EOMI, Conjunctiva clear ENT: Ears normal, Nose normal, Oropharynx normal Respiratory: Airway patent, Breath sounds clear, Breath sounds equal, Respirations nonlabored Cardiovascular: RRR, Pulses normal, No rub, No murmur GI/: Soft, No masses, Bowel sounds normal, No Organomegaly, Tender, Bowel sounds hypoactive Musculoskeletal: Normal strength, ROM intact, No edema, No calf tenderness Skin: Warm, Dry, Normal color Neurological: Sensation intact, Motor intact, Reflexes intact, Cranial nerves intact, Alert, Oriented Psychiatric: Affect appropriate, Mood appropriate Interpretation - Radiology Interpretation Radiology Interpretation By: Radiologist Exam Interpreted: CT Scan (abdomen-acute appendicitis) Re-Evaluation - Re-Evaluation Time of Re-Evaluation: 19:30 Status: Improved Vital Signs Stable: Yes Lungs: Clear Skin: Warm and Dry Neuro: Alert and Oriented X3 CV: RRR Critical Care Note - Critical Care Note Total Time (mins): 60 Course - Course Hematology/Chemistry: 08/18/18 19:10 08/18/18 19:10 Orders, Labs, Meds: Lab Review 08/18/18 08/18/18 19:10 19:10 WBC 14.23 H RBC 4.49 L Hgb 13.0 L Hct 36.7 L MCV 81.7 MCH 29.0 MCHC 35.4 RDW Coeff of Nixon 12.6 Plt Count 214 Immature Gran % (Auto) 0.3 Neut % (Auto) 80.9 Lymph % (Auto) 10.7 Donley % (Auto) 7.9 Eos % (Auto) 0.1 Baso % (Auto) 0.1 Immature Gran # (Auto) 0.0 Neut # (Auto) 11.5 H Lymph # (Auto) 1.5 Donley # (Auto) 1.1 Eos # (Auto) 0.0 Baso # (Auto) 0.0 Sodium 137.1 Potassium 3.56 Chloride 102.2 Carbon Dioxide 25.9 Anion Gap 12.56 BUN 10.1 Creatinine 0.71 Estimated GFR (MDRD) 127.00 BUN/Creatinine Ratio 14.22 Glucose 106.5 H Calcium 8.91 Total Bilirubin 0.50 AST 57.5 ALT 21.4 Alkaline Phosphatase 61.4 Total Protein 7.23 Albumin 4.36 Globulin 2.87 Albumin/Globulin Ratio 1.51 Orders Category Date Time Status EKG-(ED ONLY) Stat CARDIO 08/18/18 19:03 Completed CBC W/ AUTO DIFF Stat LAB 08/18/18 19:10 Completed CMP [COMPREHENSIVE METABOLIC PANEL] Stat LAB 08/18/18 19:10 Completed Ertapenem Sodium [Invanz] 1 gm MEDS 08/18/18 19:52 Ordered 0.9 % Sodium Chloride [Sodium Chloride] 50 ml IV ONCE Hydromorphone HCl [Dilaudid 1 mg/ml Syringe] MEDS 08/18/18 19:06 Discontinued 1 mg IVP ONCE STA Promethazine HCl [Phenergan 25 mg/ml Vial] MEDS 08/18/18 19:25 Discontinued 25 mg .ROUTE .STK-MED ONE Promethazine HCl [Phenergan 25 mg/ml Vial] 25 mg MEDS 08/18/18 19:05 Discontinued 0.9 % Sodium Chloride [Sodium Chloride] [address] ABDOMEN/PELVIS WO CONTRAST Stat RADS 08/18/18 19:03 Completed Medications Discontinued Medications Generic Name Dose Route Start Last Admin Trade Name Freq PRN Reason Stop Dose Admin Hydromorphone HCl 1 mg 08/18/18 19:06 08/18/18 19:32 Dilaudid 1 Mg/Ml Syringe IVP 08/18/18 19:07 1 mg ONCE STA Administration Promethazine HCl 25 mg/ Sodium 51 mls @ 75 mls/hr 08/18/18 19:05 08/18/18 19: 33 Chloride IV 08/18/18 19:45 75 mls/hr ONCE STA Administration Vital Signs: Temp Pulse Resp BP Pulse Ox 08/18/18 18:14 98.7 F 82 18 143/70 H 96 Departure - Departure Time of Disposition: 19:55 Disposition: TSF SHORT-TRM HOSP Discharge Problem: Acute appendicitis with generalized peritonitis Condition: Stable Pt referred to PMD for follow-up: No IPMP verified?: No Allergies/Adverse Reactions: Allergies animal dander Allergy (Severe, Unverified 08/18/18 18:17) Could not breathe and passed out Patient to notify drugstore red wasp Allergy (Severe, Uncoded 08/18/18 18:17) Itched all over, passed out Patient to notify drugstore Home Medications: Ambulatory Orders Clonazepam [Klonopin] 0.5 mg PO TID 11/12/17 Tramadol HCl 50 mg PO DAILY 08/18/18 Additional Information: Referred to [facility] for surgical consult and treatment by Dr Kang Discussed with patient who requested transfer to [facility]
[2018-08-18] MEDS ORDERED: PHENERGAN 25 MG/ML VIAL ONE (19:25)
--- NOTE | 2018-08-18 19:43 | CT ---
EXAM: CT of the abdomen and pelvis without contrast. HISTORY: Right lower quadrant abdominal pain. PROCEDURE: Contiguous axial CT images of the abdomen and pelvis without contrast with coronal and sa gittal reformats. FINDINGS: The liver, gallbladder, pancreas, spleen, adrenal glands and kidneys are normal in appearan ce. The abdominal aorta is normal in appearance. There is a 1.3 cm appendicolith in the proximal appe ndix. The appendix is enlarged measuring 1.5 cm in diameter with trace adjacent inflammatory strandi ng consistent with acute appendicitis. No free fluid or free air in the abdomen or pelvis. The bladd er is minimally filled with no abnormality identified. The seminal vesicles and prostate gland are u nremarkable. The bones and soft tissues are unremarkable. Impression: Acute appendicitis as described. Critical result: I personally discussed Impression #1 with the patient's ER physician on 08/18/2018 a t 7:38 p.m.
[2018-08-18] MEDS ORDERED: INVANZ 1 GM in SODIUM CHLORIDE 50 ML IV STA (19:52)
[2018-08-18] MEDS ORDERED: INVANZ ONE (19:59)
== END 2018-08-18 20:10 | disposition short-term general hospital (02) ==
LOC: ED 18:13
DX: K35.20 Acute appendicitis with generalized peritonitis, without abscess (principal); Z72.0 Tobacco use
CPT/HCPCS: 36415; 80053; 85025; 93005; 93010; 96365; 96367; 96375; 99285

== ENCOUNTER 2018-08-18 20:16 | Outpatient (CLI) ==
[2018-08-18 18:18] VITALS: BMI 38.1
== END 2018-08-18 20:17 | disposition home or self-care (01) ==
LOC: AMBL 20:16
PROVIDERS: ATTEND Internal Medicine Geriatric Medicine
DX: R10.9 Unspecified abdominal pain (principal)

== ENCOUNTER 2018-11-07 08:55 | Outpatient (CLI) | END 2018-11-07 08:56 | disposition home or self-care (01) | LOC: LAB 08:55 | PROVIDERS: ATTEND Physician Assistant Medical | DX: R53.83 Other fatigue (principal) | CPT/HCPCS: 36415; 84403 ==

== ENCOUNTER 2018-11-15 08:10 | Outpatient (CLI) | END 2018-11-15 08:11 | disposition home or self-care (01) | LOC: LAB 08:10 | PROVIDERS: ATTEND Anesthesiology | DX: Z01.818 Encounter for other preprocedural examination (principal); I10 Essential (primary) hypertension; S83.272A Complex tear of lateral meniscus, current injury, left knee, initial encounter | CPT/HCPCS: 36415; 80048 ==

== ENCOUNTER 2019-06-27 10:06 | Outpatient (CLI) ==
--- NOTE | 2019-06-27 10:41 | DI ---
EXAM: Three views of the lumbar spine. INDICATION: Low back pain. COMPARISON: 03/15/2018. FINDINGS/IMPRESSION: There are five lumbar type vertebral bodies. Spinal Alignment is preserved. No significant listhesi s. Vertebral body heights are preserved. No acute fracture. No significant degnerative changes.
== END 2019-06-27 10:07 | disposition home or self-care (01) ==
LOC: RAD 10:06
PROVIDERS: ATTEND Physician Assistant
DX: M54.5 Low back pain (principal)